=== PATIENT | female | born 1980 | race Caucasian/White ===

== ENCOUNTER 2017-02-22 17:46 | Emergency (ER) | payer OTHER ==
[2017-02-22] MEDS ORDERED: Ketorolac INJ* 60 MG/2 ML VIAL IM ONE (19:28)
--- NOTE | 2017-02-22 19:33 | UC ---
Lower Extremity/Ankle HPI - HPI Summary HPI Summary: The patient comes in today for: 1. Right ankle/foot: Onset: Yesterday. Palliative/provocative: Walking and movement makes it worse. Ice pack helped. Touching the area makes it worse. Quality: Ache, and sharp Region: Right ankle/foot Severity: 7/10 at rest. Time: Constant. Associated symptoms: Event: denied by patient. Previous evaluation: NOne Previous treatment: 800 mg at 8:30 AM. * - History of Current Complaint Chief Complaint: UCLowerExtremity Stated Complaint: RIGHT ANKLE INJURY Time Seen by Provider: 02/22/17 19:25 Hx Obtained From: Patient, Family/Janitorial Services Supervisor Hx Last Menstrual Period: 02/17/17 - Allergies/Home Medications Allergies/Adverse Reactions: Allergies Allergy/AdvReac Type Severity Reaction Status Date / Time No Known Allergies Allergy Verified 02/22/17 18:32 PMH/Surg Hx/FS Hx/Imm Hx Previously Healthy: No - Diverticulosis - Surgical History Surgical History: Yes Surgery Procedure, Year, and Place: BILATERL TOTAL HIP. RIGHT 2014, LEFT JUL 07. ESURE PROCEDURE - Family History Known Family History: Positive: Diabetes Negative: Hypertension - Social History Occupation: Employed Full-time, Student Lives: With Family Alcohol Use: 10 Years Ago Substance Use Type: None Smoking Status (MU): Former Smoker Type: Cigarettes Amount Used/How Often: <1/2 PPD Length of Time of Smoking/Using Tobacco: 10 Years When Did the Patient Quit Smoking/Using Tobacco: 07/09/14 - Immunization History Most Recent Influenza Vaccination: Not the season Review of Systems Constitutional: Negative Skin: Rash - At foot. Eyes: Negative ENT: Negative Respiratory: Negative Cardiovascular: Negative Gastrointestinal: Negative Genitourinary: Negative Motor: Negative Musculoskeletal: Arthralgia All Other Systems Reviewed And Are Negative: Yes Physical Exam Triage Information Reviewed: Yes Appearance: Well-Appearing, No Pain Distress - While sitting. She favors the right foot/ankle when walking., Well-Nourished Vital Signs: Initial Vital Signs Temp 97.6 F 02/22/17 18:33 Pulse 70 02/22/17 18:33 Resp 20 02/22/17 18:33 BP 110/57 02/22/17 18:33 Pulse Ox 100 02/22/17 18:33 Vital Signs Reviewed: Yes Eyes: Positive: Conjunctiva Clear. Negative: Discharge ENT: Negative: Pharyngeal erythema, Nasal congestion, TM bulging, TM dull, TM red, Tonsillar swelling, Tonsillar exudate Dental: Negative: Gross Decay/Caries @, Dental Fracture @ Neck: Positive: Supple, Nontender, No Lymphadenopathy. Negative: Nuchal Rigidity Respiratory: Positive: Chest non-tender, Lungs clear, No respiratory distress, No accessory muscle use. Negative: Crackles, Wheezing Cardiovascular Exam: Normal Cardiovascular: Positive: RRR, No Murmur Abdominal Exam: Normal Abdomen Description: Positive: Nontender, No Organomegaly, Soft. Negative: Distended, Guarding Musculoskeletal: Positive: Strength Intact, ROM Intact, Edema @ - There is non- pitting edema around the right ankle., Other: - Right ankle: There is ecchymosis superior to the ankle and lateral malleolus swelling. There is scattered ecchymosis behind the right ankle also. Mcgowan test was normal and there was no divot of the Achilles tendon on the right. Neurological: Positive: Alert, Muscle Tone Normal Psychological: Positive: Age Appropriate Behavior, Consolable Skin: Positive: rashes - Ecchymotic rash around the right ankle along with swelling. Diagnostics - Radiology No standard instances Xray Interpretation: No Acute Changes Radiology Interpretation Completed By: Radiologist - IMPRESSION: Soft tissue swelling most prominent over the lateral malleolus without additional abnormality. Lower Extremity Course/Dx - Course Course Of Treatment: Patient and male subsurface augmentee operator were told of the negative x-ray reading. She was told that since there was no event/injury, she may have had a spontaneous rupture of a blood vessel in her ankle area. For this, I recommended that she use an CHERYL wrap, and follow the RICE program. She thought crutches would be helpful, so these would be ordered. Getting an MRI was mentioned as a way of getting a better idea of what was going on in the soft tissues. - Differential Dx/Diagnosis Differential Diagnosis/HQI/PQRI: Cellulitis, Gout, Sprain Provider Diagnoses: Edema around the right ankle--spontaineous rupture of vein. Discharge - Discharge Plan Condition: Stable Disposition: HOME Patient Education Materials: Hematoma (ED) Referrals: Malia Avendaño MD [Primary Care Provider] - 3 Days (Please see your primary care provider in the next several days to see how well you are doing. If you get worse, please be seen sooner in the ER.)
[2017-02-22 20:32] VITALS: BP 103/62
--- NOTE | 2017-02-22 20:32 | RAD ---
Indication: Lateral RIGHT ankle pain and soft tissue swelling. Unknown injury. Comparison: No relevant prior exams available on the [facility] PACS for comparison. Technique: AP, mortise, and lateral views RIGHT ankle. Report: Soft tissue swelling about the visualized lower leg and ankle most prominent over the lateral malleolus. Negative for fracture, osteochondral lesion, or articular malalignment. Os trigonum accessory ossicle noted. No significant arthropathic change evident. No compelling suggestion of talocrural joint effusion. IMPRESSION: Soft tissue swelling most prominent over the lateral malleolus without additional abnormality.
== END 2017-02-22 21:14 | disposition home or self-care (01) ==
LOC: UCCORT 17:46
DX: R60.9 Edema, unspecified (principal)
CPT/HCPCS: 96372; 99213; G0463; J1885

== ENCOUNTER 2018-04-15 14:50 | Emergency (ER) | payer OTHER ==
[2018-04-15 15:06] VITALS: BP 109/72
--- NOTE | 2018-04-15 15:36 | UC ---
Abdominal Pain Female HPI - HPI Summary HPI Summary: Patient c/o chills, nausea and LLQ pain for the past week, which worsened today with lack of apetite and radiation of the pain to left flank. Last BM was 2 days ago, denies melena, blood, mucus. She is passing flatus. She has history of diverticulitis in the past. Denies PMH or current medications. Last PO intake was at 8am. Denies any dysuria or urinary frequency - History of Current Complaint Chief Complaint: UCAbdominalPain Stated Complaint: LEFT FLANK PAIN Time Seen by Provider: 04/15/18 15:03 Hx Obtained From: Patient Hx Last Menstrual Period: 03/29/18 ?: No Onset/Duration: Gradual Onset, Lasting Days Timing: Constant Severity Initially: Moderate Severity Currently: Severe Pain Intensity: 10 Location: Discrete At: LLQ Radiates to: Flank Character: Aching, Sharp Aggravating Factor(s): Nothing Alleviating Factor(s): Nothing Associated Signs and Symptoms: Positive: Negative - Risk Factors Ectopic Risk Factor: Maternal Age ^ 30 Ovarian Torsion Risk Factor: Negative Allergies/Adverse Reactions: Allergies Allergy/AdvReac Type Severity Reaction Status Date / Time No Known Allergies Allergy Verified 04/15/18 15:07 PMH/Surg Hx/FS Hx/Imm Hx Previously Healthy: Yes - Surgical History Surgical History: Yes Surgery Procedure, Year, and Place: 2 total hip replacments. esure - Family History Known Family History: Positive: Diabetes Negative: Hypertension - Social History Alcohol Use: Occasionally Substance Use Type: None Smoking Status (MU): Light Every Day Tobacco Smoker Type: Cigarettes Amount Used/How Often: <1/2 PPD Length of Time of Smoking/Using Tobacco: 10 Years When Did the Patient Quit Smoking/Using Tobacco: 07/09/14 - Immunization History Most Recent Influenza Vaccination: Not the season Review of Systems Constitutional: Negative, Chills Skin: Negative Eyes: Negative ENT: Negative Respiratory: Negative Cardiovascular: Negative Gastrointestinal: Abdominal Pain, Nausea Neurovascular: Negative Musculoskeletal: Negative Neurological: Negative All Other Systems Reviewed And Are Negative: Yes Physical Exam Triage Information Reviewed: Yes Appearance: Pain Distress, Obese Vital Signs: Initial Vital Signs Temp 99.1 F 04/15/18 15:03 Pulse 91 04/15/18 15:03 Resp 16 04/15/18 15:03 BP 109/72 04/15/18 15:03 Pulse Ox 100 04/15/18 15:03 Vital Signs Reviewed: Yes Eyes: Positive: Conjunctiva Clear ENT: Positive: Hearing grossly normal, Pharynx normal Neck: Positive: Supple, Nontender, No Lymphadenopathy Respiratory: Positive: Chest non-tender, Lungs clear, Normal breath sounds, No respiratory distress Cardiovascular: Positive: RRR, No Murmur, Pulses Normal, Brisk Capillary Refill Abdomen Description: Positive: No Organomegaly, Other: - tender on LLQ. Musculoskeletal: Positive: Strength Intact, ROM Intact, No Edema Abd Pain Female Course/Dx - Course Course Of Treatment: LLQ pain with radiation to back, instructed to go to [place] ER for further evaluation and r/o diverticulitis - Differential Dx/Diagnosis Provider Diagnoses: Acute abdominal pain Discharge - Sign-Out/Discharge Documenting (check all that apply): Patient Departure All imaging exams completed and their final reports reviewed: No Studies - Discharge Plan Condition: Guarded Disposition: HOME Patient Education Materials: Acute Abdominal Pain (ED) Referrals: Malia Avendaño MD [Primary Care Provider] - Additional Instructions: Please go to [place] ER for further evaluation for your abdominal pain. - Billing Disposition and Condition Condition: GUARDED Disposition: Home
== END 2018-04-15 15:35 | disposition home or self-care (01) ==
LOC: UCCORT 14:50
DX: R10.32 Left lower quadrant pain (principal); Z87.891 Personal history of nicotine dependence
CPT/HCPCS: 99212; G0463

== ENCOUNTER 2018-09-20 08:52 | Emergency (ER) | payer BC, OTHER ==
[2018-09-20 09:03] VITALS: BP 124/61
--- NOTE | 2018-09-20 09:55 | UC ---
Ear Complaint HPI - HPI Summary HPI Summary: 38-year-old female comes in with chief complaint of left ear pain. She has been having left ear pain on and off for several weeks. This last one week it' s been constant. In the last 24 hours the pains got worse and she also has rhinorrhea. No fevers no trauma. Is not a swimmer. No drainage. She does have a mild sore throat. No pain with chewing no dental pain. - History of Current Complaint Chief Complaint: UCEar Stated Complaint: LT EAR PAIN Time Seen by Provider: 09/20/18 09:48 Hx Last Menstrual Period: 09/20/18 Pain Intensity: 9 - Allergies/Home Medications Allergies/Adverse Reactions: Allergies Allergy/AdvReac Type Severity Reaction Status Date / Time No Known Allergies Allergy Verified 09/20/18 09:01 PMH/Surg Hx/FS Hx/Imm Hx Previously Healthy: Yes - Surgical History Surgical History: Yes Surgery Procedure, Year, and Place: 2 total hip replacments. esure - Family History Known Family History: Positive: Diabetes Negative: Hypertension - Social History Alcohol Use: Rare Substance Use Type: None Smoking Status (MU): Former Smoker Type: Cigarettes Amount Used/How Often: <1/2 PPD Length of Time of Smoking/Using Tobacco: 10 Years When Did the Patient Quit Smoking/Using Tobacco: 07/09/14 - Immunization History Most Recent Influenza Vaccination: Not the season Review of Systems All Other Systems Reviewed And Are Negative: Yes Constitutional: Positive: Negative Skin: Positive: Negative Eyes: Positive: Negative ENT: Positive: Sore Throat, Ear Ache, Nasal Discharge, Sinus Congestion Respiratory: Positive: Negative Cardiovascular: Positive: Negative Gastrointestinal: Positive: Negative Motor: Positive: Negative Neurovascular: Positive: Negative Musculoskeletal: Positive: Negative Neurological: Positive: Negative Psychological: Positive: Negative Is Patient Immunocompromised?: No Physical Exam Triage Information Reviewed: Yes Appearance: Well-Appearing, No Pain Distress, Well-Nourished Vital Signs: Initial Vital Signs Temp 98.3 F 09/20/18 09:00 Pulse 69 09/20/18 09:00 Resp 18 09/20/18 09:00 BP 124/61 09/20/18 09:00 Pulse Ox 97 09/20/18 09:00 Vital Signs Reviewed: Yes Eye Exam: Normal Eyes: Positive: Conjunctiva Clear ENT: Positive: Pharyngeal erythema, Nasal congestion, Nasal drainage, TM bulging - LEFT, TM dull - LEFT Neck exam: Normal Neck: Positive: Supple Respiratory: Positive: Lungs clear, Normal breath sounds, No respiratory distress Cardiovascular: Positive: RRR Musculoskeletal Exam: Normal Musculoskeletal: Positive: Strength Intact, ROM Intact Neurological Exam: Normal Neurological: Positive: Alert, Muscle Tone Normal Psychological Exam: Normal Psychological: Positive: Age Appropriate Behavior Skin Exam: Normal Ear Complaint Course/Dx - Differential Dx/Diagnosis Provider Diagnosis: Left serous otitis media Discharge - Sign-Out/Discharge Documenting (check all that apply): Patient Departure All imaging exams completed and their final reports reviewed: No Studies - Discharge Plan Condition: Stable Disposition: HOME Prescriptions: Amoxicillin/Clavulanate TAB* [Augmentin TAB 875*] 875 mg PO BID #20 tab Patient Education Materials: Serous Otitis Media (ED) Referrals: Carey Shukla [Primary Care Provider] - Additional Instructions: FOLLOW UP WITH YOUR DOCTOR IF NOT COMPLETELY IMPROVED. GET RECHECKED FOR ANY WORSENING OF YOUR CONDITION OR QUESTIONS OR CONCERNS. - Billing Disposition and Condition Condition: STABLE Disposition: Home
== END 2018-09-20 09:59 | disposition home or self-care (01) ==
LOC: UCCORT 08:52
DX: H65.92 Unspecified nonsuppurative otitis media, left ear (principal); J34.89 Other specified disorders of nose and nasal sinuses; J02.9 Acute pharyngitis, unspecified; R09.81 Nasal congestion; Z96.643 Presence of artificial hip joint, bilateral; Z87.891 Personal history of nicotine dependence
CPT/HCPCS: 99212; G0463

== ENCOUNTER 2019-03-01 12:52 | Emergency (ER) | payer BC ==
--- NOTE | 2019-03-01 13:26 | UC ---
Complaint Female HPI - HPI Summary HPI Summary: 38 y/o female presents to the urgent care c/o having a UTI for the past 4 days. Pt reports suprapubic pressure, urinary frequency, and "irritation" after urination.. Symptoms improved with increased hydration and cranberry juice. Symptoms have since returned and has urinary urgency now. "A little bit" lower back pain since last night. Last UTI was 11 years ago. No concern for STD; monogamous for 18 years. Denies fever/chills, N/V/D, abdominal pain, gross hematuria, or abnormal vaginal discharge/itching/odor/pain. LMP:02/18/2019 w/ regular menstrual cycles - History Of Current Complaint Stated Complaint: URINARY COMPLAINT Time Seen by Provider: 03/01/19 13:25 Hx Obtained From: Patient Hx Last Menstrual Period: 02/18/2019 ?: No Onset/Duration: Gradual Onset, Lasting Days - 4 days, Still Present Timing: Lasting Days - 4 days Severity Currently: Mild Pain Intensity: 4 Pain Scale Used: 0-10 Numeric Character: Burning Aggravating Factor(s): Urination Associated Signs And Symptoms: Positive: Back Pain - mild lower back pain. Negative: Fever, Vaginal Discharge, Genital Swelling, Genital Blisters - Risk Factors Ectopic Risk Factor: Negative Ovarian Torsion Risk Factor: Negative - Allergies/Home Medications Allergies/Adverse Reactions: Allergies Allergy/AdvReac Type Severity Reaction Status Date / Time No Known Allergies Allergy Verified 03/01/19 13:31 PMH/Surg Hx/FS Hx/Imm Hx Previously Healthy: Yes - Pt denies PMHX - Surgical History Surgical History: Yes Surgery Procedure, Year, and Place: 2 total hip replacments. esure - Family History Known Family History: Positive: Diabetes Negative: Hypertension - Social History Occupation: Employed Full-time Lives: With Family Alcohol Use: Rare Substance Use Type: None Smoking Status (MU): Former Smoker Type: Cigarettes Amount Used/How Often: <1/2 PPD Length of Time of Smoking/Using Tobacco: 10 Years When Did the Patient Quit Smoking/Using Tobacco: 07/09/14 - Immunization History Most Recent Influenza Vaccination: Not the 2013/2014 season Review of Systems All Other Systems Reviewed And Are Negative: Yes Constitutional: Positive: Negative Skin: Positive: Negative Eyes: Positive: Negative ENT: Positive: Negative Respiratory: Positive: Negative Cardiovascular: Positive: Negative Gastrointestinal: Positive: Negative Genitourinary: Positive: Dysuria, Frequency, Urgency, Other - pelvic pressure and mild lower back pain Motor: Positive: Negative Neurovascular: Positive: Negative Musculoskeletal: Positive: Negative Neurological: Positive: Negative Psychological: Positive: Negative Is Patient Immunocompromised?: No Physical Exam - Summary Physical Exam Summary: VITAL SIGNS: Reviewed. GENERAL: Patient is a well developed and nourished obese female who is sitting comfortable in the examining table. Patient is not in any acute respiratory distress. HEAD AND FACE: No signs of trauma. No ecchymosis, hematomas or skull depressions. No sinus tenderness. EYES: PERRLA, EOMI x 2, No injected conjunctiva, clear watery eyes, no nystagmus. No photophobia. EARS: Hearing grossly intact. Ear canals and tympanic membranes are within normal limits. MOUTH: pharynx with no erythema, no exudates,no palatal petechiae. no B/L tonsillar enlargement Uvula in midline. NECK: Supple, trachea is midline, no lymphadenopathy, no JVD, no carotid bruit, no c-spine tenderness, neck with full ROM. CHEST: Symmetric, no tenderness at palpation LUNGS: Clear to auscultation bilaterally. No wheezing or crackles. CVS: Regular rate and rhythm, S1 and S2 present, no murmurs or gallops appreciated. ABDOMEN: Soft, non-tender. No signs of distention. No rebound no guarding, and no masses palpated. Bowel sounds are normal. BACK:no scoliosis or lesions, non tender to palpation, No B/L CVA tenderness EXTREMITIES: FROM in all major joints, no edema, no cyanosis or clubbing. NEURO: Alert and oriented x 3. No acute neurological deficits. Speech is normal and follows commands. SKIN: Dry and warm Triage Information Reviewed: Yes Complaint Female Dx - Course Course Of Treatment: 38 y/o female presents to the urgent care c/o having a UTI for the past 4 days. Pt reports suprapubic pressure, urinary frequency, and "irritation" after urination.. Symptoms improved with increased hydration and cranberry juice. Symptoms have since returned and has urinary urgency now. "A little bit" lower back pain since last night. Last UTI was 11 years ago. No concern for STD; monogamous for 18 years. Denies fever/chills, N/V/D, abdominal pain, gross hematuria, or abnormal vaginal discharge/itching/odor/pain. LMP:02/18/2019 w/ regular menstrual cycles. Hx obtained. PE:WNL. UA and test ordered. UA results: Blood trace+, Leukoesterase 2+. test: negative. Pt Rx keflex PO PO x 7 days. Pyridium 100mg PO TID x 2 days. Advised to increase fluid intake. Urine sent for culture if any abnormality Pt will be notified for further treatment. Pt advised If symptoms do not improve to return to the urgent care or f/u with PCP. Pt understood and agreed. Left the clinic ambulating. - Differential Dx/Diagnosis Differential Diagnosis/HQI/PQRI: Cervicitis, Renal Colic, Sexually Transmitted Disease, Ureteral Stone, Urinary Tract Infection Provider Diagnosis: UTI (urinary tract infection) Discharge - Sign-Out/Discharge Documenting (check all that apply): Patient Departure - D/C home All imaging exams completed and their final reports reviewed: No Studies - Discharge Plan Condition: Stable Disposition: HOME Prescriptions: Cephalexin CAP* [Keflex CAP*] 500 mg PO BID #14 cap Phenazopyridine TAB* [Pyridium 100 mg TAB*] 100 mg PO TID #6 tab Patient Education Materials: Urinary Tract Infection in Women (ED) Referrals: Carey Shukla [Primary Care Provider] - 3 Days Additional Instructions: 1- Please take Keflex PO x 7 days. Pyridium 100 mg PO TID x 2 days to alleviate urinary symptoms. Increase increase fluid intake. drink cranberry juice. 2-Urine sent for culture if any abnormality, you will be notified for further treatment. 3-If symptoms do not improve please return to the urgent care or f/u with your PCP in 3 days for further management. - Billing Disposition and Condition Condition: STABLE Disposition: Home - Attestation Statements Provider Attestation: Per institutional requirements, I have reviewed the chart, however, I was not consulted specifically or made aware of this patient by the midlevel provider. I did not personally evaluate, interact with , or disposition this patient.
[2019-03-01 13:37] VITALS: BP 107/72
== END 2019-03-01 14:03 | disposition home or self-care (01) ==
LOC: UCCORT 12:52
DX: N39.0 Urinary tract infection, site not specified (principal); B96.20 Unspecified Escherichia coli [E. coli] as the cause of diseases classified elsewhere; Z87.891 Personal history of nicotine dependence
CPT/HCPCS: 81003; 84702; 87077; 87086; 87186; 99212; G0463

== ENCOUNTER 2019-11-16 10:15 | Emergency (ER) | payer BC ==
--- NOTE | 2019-11-16 10:54 | UC ---
Respiratory Complaint HPI - HPI Summary HPI Summary: 39 yo with 3 day history of malaise, with progressive dry cough and shortness of breath. 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 Past hx of bronchitis for which she has used antibiotic and albuterol with relief. Has been awakening with shortness of breath. Former smoker, stopped several years ago. - History of Current Complaint Chief Complaint: UCGeneralIllness Stated Complaint: COUGH, CHEST CONGESTION Hx Obtained From: Patient Hx Last Menstrual Period: 11/14/19 Onset/Duration: Gradual Onset Timing: Constant Severity Initially: Moderate Severity Currently: Moderate Pain Intensity: 4 Character: Cough: Nonproductive Aggravating Factors: Exertion, Recumbent Position Associated Signs And Symptoms: Positive: Dyspnea, Nasal Congestion. Negative: Fever, Wheezing, URI - Risk Factors Pulmonary Embolism Risk Factors: Negative Cardiac Risk Factors: Negative Pseudomonas Risk Factors: Negative Tuberculosis Risk Factors: Negative - Allergies/Home Medications Allergies/Adverse Reactions: Allergies Allergy/AdvReac Type Severity Reaction Status Date / Time No Known Allergies Allergy Verified 11/16/19 10:47 Home Medications: Home Medications Albuterol HFA INHALER* [Ventolin HFA Inhaler*] 2 puff INH Q6H PRN #1 mdi [Rx] Azithromyxin APRIL (NF) [Z-April (Zithromax) 250 mg tabs #6] 2 tab PO .TODAY, THEN 1 DAILY #6 tab 11/16/19 [Rx] Meloxicam 7.5 mg PO DAILY 11/16/19 [History Confirmed 11/16/19] PMH/Surg Hx/FS Hx/Imm Hx Previously Healthy: Yes - morbid obesity - Surgical History Surgical History: Yes Surgery Procedure, Year, and Place: 2 total hip replacments. esure - Family History Known Family History: Positive: Diabetes Negative: Hypertension - Social History Occupation: Employed Full-time Lives: With Family Alcohol Use: Rare Substance Use Type: None Smoking Status (MU): Former Smoker Type: Cigarettes Amount Used/How Often: <1/2 PPD Length of Time of Smoking/Using Tobacco: 10 Years When Did the Patient Quit Smoking/Using Tobacco: 07/09/14 - Immunization History Most Recent Influenza Vaccination: Not the Review of Systems All Other Systems Reviewed And Are Negative: Yes Constitutional: Positive: Fatigue Skin: Positive: Negative Eyes: Positive: Negative ENT: Positive: Nasal Discharge. Negative: Sore Throat Respiratory: Positive: Shortness Of Breath, Cough Cardiovascular: Negative: Palpitations, Chest Pain Gastrointestinal: Positive: Negative Genitourinary: Positive: Negative Motor: Positive: Negative Neurovascular: Positive: Negative Musculoskeletal: Positive: Myalgia Neurological/Mental Status: Positive: Negative Psychological: Positive: Negative Is Patient Immunocompromised?: No Physical Exam - Summary Physical Exam Summary: Full PPE donned for evaluation and assessment. Triage Information Reviewed: Yes Appearance: Ill-Appearing - mildly tachypneic, but able to speak., Obese Eye Exam: Normal ENT: Positive: Pharynx normal Neck: Positive: Supple, Nontender, No Lymphadenopathy Respiratory: Positive: No respiratory distress - mildly tachypneic with O2 sat of 100%, no indrawing or sternomastoid use., Decreased breath sounds. 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 - Differential Dx/Diagnosis Differential Diagnosis/HQI/PQRI: Bronchitis, Lower Resp Infection, Other - COVID -19 Provider Diagnosis: Bronchitis Discharge ED - Sign-Out/Discharge Documenting (check all that apply): Patient Departure All imaging exams completed and their final reports reviewed: No Studies - Discharge Plan Condition: Stable Disposition: HOME Prescriptions: Albuterol HFA INHALER* [Ventolin HFA Inhaler*] 2 puff INH Q6H PRN #1 mdi PRN Reason: Wheezing Azithromyxin APRIL (NF) [Z-April (Zithromax) 250 mg tabs #6] 2 tab PO .TODAY, THEN 1 DAILY #6 tab Patient Education Materials: Acute Bronchitis (ED) Forms: COVID-19 Tested & Isolation Referrals: Noble Garzon NP [Primary Care Provider] - Additional Instructions: As reviewed, begin treatment for suspected bronchitis. Remain off work and isolated pending the result of COVID-19 testing, which could take up to 7 days. - Billing Disposition and Condition Condition: STABLE Disposition: Home
--- OUTSIDE RECORDS SUMMARY | 2019-11-16 10:54 | XMS REPORT | Continuity of Care Document ---
:1980 External Reference #:[id number] Author Name aSm Esparza M.D. Address [address] [place] [address] [address] [place] [address] Problems Description No Information Available Social History Type Date Description Comments Sex Unknown ETOH Use Occasionally consumes alcohol Tobacco Use Start: Unknown End: Patient is a former smoker Unknown Recreational Drug Use Regularly uses Marijuana Allergies, Adverse Reactions, Alerts Description No Known Drug Allergies Medications Active Medications SIG Qnty Indications Ordering Provider Date Allergy Relief 1 by mouth every 30tabs J30.9 Sam Esparza, 05/09/2019 10mg day M.D. Tablets Dispers Meloxicam take one tablet 60tabs M15.9 Sam Esparza, 05/09/2019 7.5mg Tablets by mouth twice a M.D. day-take with food History Medications Ciprofloxacin HCL 1 tab by mouth 30tabs K57.32 Sam Esparza 08/29/2019 - 500mg twice a day M. M.DYovanny 09/05/2019 Tablets Azithromycin z harjinder uad 6tabs J20.9 IsaiasSam levy 05/23/2019 - 250mg Tablets M. MYovannyDYovanny 2019 Diflucan 1 by mouth day 2tabs Sam Esparza 05/19/2019 - 150mg Tablets one Today, and Beronica Akhtar 2019 Last Day Of Abx Amoxicillin/Clavulanate 1 tab by mouth 30tabs J30.9 Sam Esparza 2018 - Potassium twice a day Hermilo AkhtarDYovanny 05/24/2019 875-125mg Tablets Immunizations CPT Code Status Date Vaccine Lot # [id number] Given 09/25/2019 [facility] [id number] Vital Signs Date Vital Result Comment 09/25/2019 4:22pm BP Systolic 118 mmHg BP Diastolic 68 mmHg Height 59.5 inches 4'11.50" Weight 241.00 lb BMI (Body Mass Index) 47.9 kg/m2 Heart Rate 89 /min Respiratory Rate 16 /min 09/08/2019 8:47am BP Systolic 125 mmHg BP Diastolic 60 mmHg Height 59.5 inches 4'11.50" Weight 241.00 lb BMI (Body Mass Index) 47.9 kg/m2 Heart Rate 70 /min Respiratory Rate 17 /min Results Test Acquired Date Facility Test Result H/L Range Note 1,25 Dihydroxy 05/23/2019 [facility] Calcitriol 19 pg/mL 18-78 1 Vitamin D Laboratory test 05/23/2019 [facility] Erythrocyte Sed 23 mm/Hr High 0 -19 finding Rate Iron 72 g/dL Normal 50-212 Lyme Screen w/ Reflex to WB Negative Negative Lipid 05/23/2019 [facility] Triglycerides 65 mg/dL 2 Cholesterol 160 mg/dL 3 HDL Cholesterol 40.7 mg/dL 4 LDL Cholesterol 106 mg/dL 5 Laboratory test 05/23/2019 [facility] Hemoglobin A1c 5.5 % Normal 4.0 -5.6 6 finding (Glyco HGB) CBC With Diff 05/23/2019 [facility] White Blood 6.4 Normal 3.5-10.8 Count 10^3/uL Red Blood Count 4.01 10^6/uL Normal 3.70-4.87 Hemoglobin 12.9 g/dL Normal 12.0-16.0 Hematocrit 37 % Normal 35-47 Mean Corpuscular Volume 92 fL Normal 80-97 Mean Corpuscular Hemoglobin 32 pg High 27-31 Mean Corpuscular HGB Conc 35 g/dL Normal 31-36 Red Cell Distribution Width 13 % Normal 10-15 Platelet Count 292 10^3/uL Normal 150-450 Mean Platelet Volume 7.0 fL Low 7.4-10.4 Abs Neutrophils 3.9 10^3/uL Normal 1.5-7.7 Abs Lymphocytes 1.7 10^3/uL Normal 1.0-4.8 Abs Monocytes 0.4 10^3/uL Normal 0-0.8 Abs Eosinophils 0.2 10^3/uL Normal 0-0.6 Abs Basophils 0.0 10^3/uL Normal 0-0.2 Abs Nucleated RBC 0.0 10^3/uL Granulocyte % 61.7 % Lymphocyte % 27.2 % Monocyte % 6.8 % Eosinophil % 3.9 % Basophil % 0.4 % Nucleated Red Blood Cells % 0.0 CMP 05/23/2019 [facility] Sodium 140 mmol/L Normal 135-145 Potassium 4.3 mmol/L Normal 3.5-5.0 Chloride 106 mmol/L Normal 101-111 Co2 Carbon Dioxide 28 mmol/L Normal 22-32 Anion Gap 6 mmol/L Normal 2-11 Glucose 79 mg/dL Normal 70-100 Blood Urea Nitrogen 14 mg/dL Normal 6-24 Creatinine 0.60 mg/dL Normal 0.51-0.95 BUN/Creatinine Ratio 23.3 High 8-20 Calcium 9.0 mg/dL Normal 8.6-10.3 Total Protein 6.1 g/dL Low 6.4-8.9 Albumin 4.1 g/dL Normal 3.2-5.2 Globulin 2.0 g/dL Normal 2-4 Albumin/Globulin Ratio 2.1 Normal 1-3 Total Bilirubin 0.60 mg/dL Normal 0.2-1.0 Alkaline Phosphatase 54 U/L Normal 34-104 Alt 16 U/L Normal 7-52 Ast 15 U/L Normal 13-39 Egfr Non- 111.3 >60 Egfr 134.7 >60 7 Laboratory test 05/23/2019 [facility] Rheumatoid Factor < 10 IU/mL Normal <15 finding Uric Acid 5.4 mg/dL Normal 2.3-6.6 CRP High Sensitivity 8.67 mg/L High <2.00 TSH (Thyroid Stim Horm) 0.70 mcIU/mL Normal 0.34-5.60 Free T4 (Free Thyroxine) 0.93 ng/dL Normal 0.61-1.12 Hepatitis 05/23/2019 [facility] Hepatitis B Nonreactive Nonreactive Profile Acute Surface Antigen Hepatitis B Core IgM Nonreactive Nonreactive Hepatitis A Ab IgM Negative Negative HCV Index 0.03 s/c Hepatitis C Antibody Negative Negative Urine Drug [place] 05/09/2019 [facility] KBD-Ooaup-1-Cooh 149.9 Abnormal 5 8, 9 Positive I <SEE NOTE> ng/mL Antidepressants 05/09/2019 [facility] Amitriptyline Negative Normal 20 Panel By LC/MS/MS ng/mL Clomipramine Negative ng/mL Normal 20 Desipramine Negative ng/mL Normal 20 Doxepin Negative ng/mL Normal 20 Fluoxetine Negative ng/mL Normal 20 Imipramine Negative ng/mL Normal 20 Norclomipramine Negative ng/mL Normal 20 Nordoxepin Negative ng/mL Normal 20 Nortriptyline Negative ng/mL Normal 20 Sertraline Negative ng/mL Normal 20 Trimipramine Negative ng/mL Normal 20 10 Barbiturates Panel 05/09/2019 [facility] Butalbital Negative ng/ mL Normal 100 By LC/MS/MS Pentobarbital Negative ng/mL Normal 100 Phenobarbital Negative ng/mL Normal 100 Secobarbital Negative ng/mL Normal 100 11 Benzodiazepines 05/09/2019 [facility] 2-Hydroxyethylflurazepam Negative Normal 10 Panel By LC/MS/MS ng/mL 7-Aminoclonazepam Negative ng/mL Normal 10 Alprazolam Negative ng/mL Normal 10 Chlordiazepoxide Negative ng/mL Normal 10 Clonazepam Negative ng/mL Normal 10 Desalkylflurazepam Negative ng/mL Normal 10 Diazepam Negative ng/mL Normal 10 Lorazepam Negative ng/mL Normal 10 Midazolam Negative ng/ml Normal 10 Nordiazepam Negative ng/mL Normal 10 Alpha-hydroxyalprazolam Negative ng/mL Normal 10 Alpha-Hydroxymidazolam Negative ng/mL Normal 10 Alpha-Hydroxytriazolam Negative ng/mL Normal 10 Oxazepam Negative ng/mL Normal 10 Prazepam Negative ng/mL Normal 10 Temazepam Negative ng/mL Normal 10 12 Buprenorphine Panel 05/09/2019 [facility] Buprenorphine Negative ng/mL Normal 5 By LC/MS/MS Naloxone Negative ng/mL Normal 10 Norbuprenorphine Negative ng/mL Normal 5 13 Methadone Panel By 05/09/2019 [facility] Eddp Negative ng/mL Normal 10 LC/MS/MS Methadone Negative ng/mL Normal 10 14 Opiates Panel 05/09/2019 [facility] 6-Osbaldo (Heroin Negative ng/mL Normal 5 By LC/MS/MS Metabolite) Codeine Negative ng/mL Normal 50 Hydrocodone Negative ng/mL Normal 50 Hydromorphone Negative ng/mL Normal 50 Morphine Negative ng/mL Normal 50 Norhydrocodone Negative ng/mL Normal 50 Noroxycodone Negative ng/mL Normal 50 Noroxymorphone Negative ng/mL Normal 50 Oxycodone Negative ng/mL Normal 50 Oxymorphone Negative ng/mL Normal 50 15 Specimen Validity 05/09/2019 [facility] Creatinine, Urine 25 mg/ dL Normal >20 Panel Color YELLOW Normal Yellow pH 8.8 Abnormal 5.0-8.0 Specific [place] 1.009 Normal 1.001-1.035 16 Amphetamine Panel 05/09/2019 [facility] Amphetamine Negative ng/ mL Normal 50 By LC/MS/MS Methamphetamine Negative ng/mL Normal 50 Mdma (Ecstasy) Negative ng/mL Normal 50 Mda Negative ng/ml Normal 50 Mdea Negative ng/mL Normal 50 17 Cocaine Panel 05/09/2019 [facility] Benzoylecgonine Negative Normal 50 18 By LC/MS/MS (Cocaine) ng/mL Urine DRG SCR 05/09/2019 [facility] Amphetamine NEGATIVE Normal 1000 (12PNL-PM) Barbiturate NEGATIVE Normal 200 Benzodiazepine NEGATIVE Normal 200 Buprenorphine NEGATIVE Normal 15 Cannabinoid POSITIVE Abnormal 50 Cocaine NEGATIVE Normal 300 Methadone NEGATIVE Normal 300 Opiate NEGATIVE Normal 300 Oxycodone NEGATIVE Normal 300 Phencyclidine NEGATIVE Normal 25 19 Laboratory test 05/09/2019 [facility] Tramadol Negative ng/mL Normal 5 20 finding Gabapentin Negative ng/mL Normal 100 21 Phentermine Negative ng/mL Normal 50 22 Ethyl Glucuronide 05/09/2019 [facility] Ethyl Glucuronide Negative Normal 500 ng/mL PDF SEE IMAGE 1 ADDITIONAL INFORMATION This test was developed and its performance characteristics determined by [facility] in a manner consistent with CLIA requirements. This test has not been cleared or approved by the U.S. Food and Drug Administration. Test Performed by: [facility] [address] [place] [address] Mutuel Cashier: Noble Elizabeth M.D. Ph.D.; CLIA# [id number] 2 Desirable: <150 Borderline High: 150-199 High: 200-499 Very High: >500 3 Desirable: <200 Borderline High: 200-239 High: >239 4 Low: <40 Desirable: 40-60 High: >60 5 Desirable: <100 Near Optimal: 100-129 Borderline High: 130-159 High: 160-189 Very High: >189 6 Therapeutic target for the treatment of diabetes mellitus patients is <7% HBA1C, and in selective patients <6.0%. Please refer to [place] [employer] diabetic care guidelines for further information. 7 Because ethnic data is not always readily available, this report includes an eGFR for both -Americans and non- Americans. The National Kidney Disease Education Program (NKDEP) does not endorse the use of the MDRD equation for patients that are not between the ages of 18 and 70, are , have extremes of body size, muscle mass, or nutritional status, or are non- or non-. According to the National Kidney Foundation, irrespective of diagnosis, the stage of the disease is based on the level of kidney function: Stage Description GFR(mL/min/1.73 m(2)) 1 Kidney damage with normal or decreased GFR 90 2 Kidney damage with mild decrease in GFR 60-89 3 Moderate decrease in GFR 30-59 4 Severe decrease in GFR 15-29 5 Kidney failure <15 (or dialysis) 8 Prescribed Medications: No prescribed medications were listed on the requisition form. 9 149.9 Positive Inconsistent EQA-Cswph-9-COOH is a metabolite of THC(Marijuana) Prescribed Medications: No prescribed medications were listed on the requisition form. 10 Prescribed Medications: No prescribed medications were listed on the requisition form. 11 Prescribed Medications: No prescribed medications were listed on the requisition form. 12 Prescribed Medications: No prescribed medications were listed on the requisition form. 13 Prescribed Medications: No prescribed medications were listed on the requisition form. 14 Prescribed Medications: No prescribed medications were listed on the requisition form. 15 Prescribed Medications: No prescribed medications were listed on the requisition form. 16 Prescribed Medications: No prescribed medications were listed on the requisition form. 17 Prescribed Medications: No prescribed medications were listed on the requisition form. 18 Prescribed Medications: No prescribed medications were listed on the requisition form. 19 Prescribed Medications: No prescribed medications were listed on the requisition form. 20 Prescribed Medications: No prescribed medications were listed on the requisition form. 21 Prescribed Medications: No prescribed medications were listed on the requisition form. 22 Prescribed Medications: No prescribed medications were listed on the requisition form. Procedures Date Code Description Status 05/23/2019 69072 Tympanometry Completed 05/09/2019 76615 Visual Screening Test Completed 05/09/2019 41911 Audiometry, Bekesy, Screening Completed Medical Devices Description No Information Available Encounters Type Date Location Provider Dx Diagnosis Office Visit 09/25/2019 [facility] Isaias Dimitrisbertha Akhtar, L20.9 Atopic dermatitis, 4:30p M.D. unspecified J30.9 Allergic rhinitis, unspecified M15.9 Polyosteoarthritis, unspecified K57.32 Dvtrcli of lg int w/o perforation or abscess w/o bleeding Z23 Encounter for immunization H66.93 Otitis media, unspecified, bilateral H92.03 Otalgia, bilateral J20.9 Acute bronchitis, unspecified M25.571 Pain in right ankle and joints of right foot Office Visit 09/08/2019 8:45a [facility] Yamile Padilla0.9 Atopic dermatitis, N.P. unspecified J30.9 Allergic rhinitis, unspecified M15.9 Polyosteoarthritis, unspecified M25.571 Pain in right ankle and joints of right foot Z13.29 Encounter for screening for oth suspected endocrine disorder H66.93 Otitis media, unspecified, bilateral H92.03 Otalgia, bilateral J20.9 Acute bronchitis, unspecified K57.32 Dvtrcli of lg int w/o perforation or abscess w/o bleeding Z23 Encounter for immunization Z68.42 Body mass index (BMI) 45.0-49.9, adult Office Visit 08/29/2019 1:00p [facility] Yamile Padilla0.9 Atopic dermatitis, N.P. unspecified J30.9 Allergic rhinitis, unspecified M15.9 Polyosteoarthritis, unspecified M25.571 Pain in right ankle and joints of right foot Z13.29 Encounter for screening for oth suspected endocrine disorder H66.93 Otitis media, unspecified, bilateral H92.03 Otalgia, bilateral J20.9 Acute bronchitis, unspecified K57.32 Dvtrcli of lg int w/o perforation or abscess w/o bleeding Z68.42 Body mass index (BMI) 45.0-49.9, adult Office Visit 05/23/2019 8:45a [facility] Yamile Padilla0.9 Atopic dermatitis, N.P. unspecified J30.9 Allergic rhinitis, unspecified M15.9 Polyosteoarthritis, unspecified M25.571 Pain in right ankle and joints of right foot Z13.29 Encounter for screening for oth suspected endocrine disorder H66.93 Otitis media, unspecified, bilateral H92.03 Otalgia, bilateral J20.9 Acute bronchitis, unspecified Z68.42 Body mass index (BMI) 45.0-49.9, adult Office Visit 05/09/2019 2:30p [facility] Noble Garzon L20.9 Atopic dermatitis, N.P. unspecified J30.9 Allergic rhinitis, unspecified Z00.01 Encounter for general adult medical exam w abnormal findings M15.9 Polyosteoarthritis, unspecified M25.571 Pain in right ankle and joints of right foot H92.01 Otalgia, right ear Z68.42 Body mass index (BMI) 45.0-49.9, adult Assessments Date Code Description Provider 09/25/2019 L20.9 Atopic dermatitis, unspecified Sam Esparza M.D. 09/25/2019 J30.9 Allergic rhinitis, unspecified Sam Esparza M.D. 09/25/2019 M15.9 Polyosteoarthritis, unspecified Sam Esparza M.D. 09/25/2019 K57.32 Diverticulitis of large intestine without Sam Esparza M.D. perforation or abscess without bleeding 09/25/2019 Z23 Encounter for immunization Sam Esparza M.D. 09/25/2019 H66.93 Otitis media, unspecified, bilateral Sam Esparza M.D. 09/25/2019 H92.03 Otalgia, bilateral Sam Esparza M.D. 09/25/2019 J20.9 Acute bronchitis, unspecified Sam Esparza M.D. 09/25/2019 M25.571 Pain in right ankle and joints of right foot Sam Esparza M.D. 09/08/2019 L20.9 Atopic dermatitis, unspecified Noble Garzon N.P. 09/08/2019 J30.9 Allergic rhinitis, unspecified Noble Garzon N.P. 09/08/2019 M15.9 Polyosteoarthritis, unspecified Noble Garzon N.P. 09/08/2019 M25.571 Pain in right ankle and joints of right foot Noble Garzon, N.P. 09/08/2019 Z13.29 Encounter for screening for other suspected Noble Garzon , N.P. endocrine disorder 09/08/2019 H66.93 Otitis media, unspecified, bilateral Noble Garzon, N.P. 09/08/2019 H92.03 Otalgia, bilateral Noble Garzon, N.P. 09/08/2019 J20.9 Acute bronchitis, unspecified Noble Garzon, N.P. 09/08/2019 K57.32 Diverticulitis of large intestine without Noble Garzon, N.P. perforation or abscess without bleeding 09/08/2019 Z23 Encounter for immunization Noble Garzon, N.P. 09/08/2019 Z68.42 Body mass index (BMI) 45.0-49.9, adult Noble Garzon, N.P. 09/05/2019 L20.9 Atopic dermatitis, unspecified Noble Garzon, N.P. 09/05/2019 J30.9 Allergic rhinitis, unspecified Noble Garzon, N.P. 09/05/2019 M15.9 Polyosteoarthritis, unspecified Noble Garzon, N.P. 09/05/2019 M25.571 Pain in right ankle and joints of right foot Noble Garzon, N.P. 09/05/2019 Z13.29 Encounter for screening for other suspected Noble Garzon , N.P. endocrine disorder 09/05/2019 H66.93 Otitis media, unspecified, bilateral Noble Garzon, N.P. 09/05/2019 H92.03 Otalgia, bilateral Noble Garzon, N.P. 09/05/2019 J20.9 Acute bronchitis, unspecified Noble Garzon, N.P. 09/05/2019 K57.32 Diverticulitis of large intestine without Noble Garzon, N.P. perforation or abscess without bleeding 09/05/2019 Z68.42 Body mass index (BMI) 45.0-49.9, adult Noble Garzon, N.P. 08/29/2019 L20.9 Atopic dermatitis, unspecified Noble Garzon, N.P. 08/29/2019 J30.9 Allergic rhinitis, unspecified Noble Garzon, N.P. 08/29/2019 M15.9 Polyosteoarthritis, unspecified Noble Garzon, N.P. 08/29/2019 M25.571 Pain in right ankle and joints of right foot Noble Garzon, N.P. 08/29/2019 Z13.29 Encounter for screening for other suspected Noble Garzon , N.P. endocrine disorder 08/29/2019 H66.93 Otitis media, unspecified, bilateral Noble Garzon, N.P. 08/29/2019 H92.03 Otalgia, bilateral Noble Garzon, N.P. 08/29/2019 J20.9 Acute bronchitis, unspecified Noble Garzon, N.P. 08/29/2019 K57.32 Diverticulitis of large intestine without Noble Garzon, N.P. perforation or abscess without bleeding 08/29/2019 Z68.42 Body mass index (BMI) 45.0-49.9, adult Noble Garzon, N.P. 05/23/2019 L20.9 Atopic dermatitis, unspecified Noble Garzon, N.P. 05/23/2019 J30.9 Allergic rhinitis, unspecified Noble Garzon, N.P. 05/23/2019 M15.9 Polyosteoarthritis, unspecified Noble Garzon, N.P. 05/23/2019 M25.571 Pain in right ankle and joints of right foot Noble Garzon, N.P. 05/23/2019 Z13.29 Encounter for screening for other suspected Noble Garzon , N.PYovanny endocrine disorder 05/23/2019 H66.93 Otitis media, unspecified, bilateral Noble Garzon, N.P. 05/23/2019 H92.03 Otalgia, bilateral Noble Garzon, N.P. 05/23/2019 J20.9 Acute bronchitis, unspecified Noble Garzon, N.P. 05/23/2019 Z68.42 Body mass index (BMI) 45.0-49.9, adult Noble Garzon, N.P. 05/09/2019 L20.9 Atopic dermatitis, unspecified Noble Garzon, N.P. 05/09/2019 J30.9 Allergic rhinitis, unspecified Noble Garzon, N.P. 05/09/2019 Z00.01 Encounter for general adult medical Noble Garzon N.Maulik examination with abnormal findings 05/09/2019 M15.9 Polyosteoarthritis, unspecified Noble Garzon, N.P. 05/09/2019 M25.571 Pain in right ankle and joints of right foot Noble Garzon, N.P. 05/09/2019 H92.01 Otalgia, right ear Noble Garzon N.P. 05/09/2019 Z68.42 Body mass index (BMI) 45.0-49.9, adult Noble Garzon N.P. Plan of Treatment 09/25/2019 - Sam Esparza M.D.L20.9 Atopic dermatitis, unspecifiedComments: SKIN CARE INSTRUCTIONS LOTION OR BABY OIL 2-3 APPLICATION PER DAYUSE MOISTURIZING SOAPAVOID PROLONGED WATER EXPOSUREAVOID USING HOT WATER IN SKUECTD97.9 Allergic rhinitis, unspecifiedComments:INCREASE PO FLUID USE ANTIHISTAMINE PRN SECOND HAND SMOKING [id number] Polyosteoarthritis, unspecifiedComments:EXERCISE/HEAT/MESSAGETYLENOL OR MOTRIN PRNAVOID HEAVY LIFTINGWT LOSSK57.32 Diverticulitis of large intestine without perforation or abscess without bleedingComments:KEEP APPTS FOR DIAGNOSTIC TESTING ORDERED KEEP APPTS FOR DIAGNOSTIC TESTING ORDERED KEEP APPTS FOR DIAGNOSTIC TESTING [id number] Encounter for immunizationComments:IMMUNIZATION GIVEN ( SEE LIST ) BENEFITS ,RISK AND SIDE EFFECTS DISSCUSED HANDOUT UBNXOT65.93 Otitis media, unspecified, bilateralComments:BJFOMTITL75.03 Otalgia, bilateralComments: RYNVWYKFD79.9 Acute bronchitis, unspecifiedComments:EGBITPGPK37.571 Pain in right ankle and joints of right footComments:RESOLVED Functional Status Description No Information Available Mental Status Description No Information Available Referrals Description No Information Available
--- OUTSIDE RECORDS SUMMARY | 2019-11-16 10:54 | XMS REPORT | Continuity of Care Document ---
:1980 External Reference #:[id number] Author Name Sam Esparza M.D. Address [address] [place] [address] [address] [facility] [place] [address] Problems Description No Information Available Social History [...] Esparza 08/29/2019 - 500mg twice a day MYovanny MYovannyDYovanny 09/05/2019 Tablets Azithromycin z harjinder uad 6tabs J20.9 Sam Esparza 05/23/2019 - 250mg Tablets M. MYovannyDYovanny 2019 Diflucan 1 by mouth day 2tabs Sam Esparza 05/19/2019 - 150mg Tablets one Today, and Beronica Akhtar 2019 Last Day Of Abx Immunizations CPT Code Status Date Vaccine Lot # [id number] Given 09/25/2019 MMR [id number] Vital Signs Date Vital Result Comment 11/11/2019 9:15am BP Systolic 120 mmHg BP Diastolic 60 mmHg Height 59.5 inches 4'11.50" Weight 235.00 lb BMI (Body Mass Index) 46.7 kg/m2 Heart Rate 113 /min Respiratory Rate 17 /min 09/25/2019 4:22pm BP Systolic 118 mmHg BP Diastolic 68 mmHg Height 59.5 inches 4'11.50" Weight 241.00 lb BMI (Body Mass Index) 47.9 kg/m2 Heart Rate 89 /min Respiratory Rate 16 /min Results Test Acquired Date Facility Test Result H/L Range Note CBC With 05/23/2019 [facility] White Blood 6.4 10^3/uL Normal 3.5- 10.8 Diff Count Red Blood Count 4.01 10^6/uL Normal 3.70-4.87 [...] Red Blood Cells % 0.0 CMP 05/23/2019 [facility] Sodium 140 mmol/L Normal 135-145 Potassium 4.3 [...] Egfr Non- 111.3 >60 Egfr 134.7 >60 1 Laboratory test 05/23/2019 [facility] Rheumatoid Factor < 10 IU/mL Normal <15 finding Uric Acid 5.4 mg/dL Normal 2.3-6.6 CRP High Sensitivity 8.67 mg/L High <2.00 TSH (Thyroid Stim Horm) 0.70 mcIU/mL Normal 0.34-5.60 Free T4 (Free Thyroxine) 0.93 ng/dL Normal 0.61-1.12 Hepatitis 05/23/2019 [facility] Hepatitis B Nonreactive Nonreactive Profile Acute Surface Antigen Hepatitis B Core IgM Nonreactive Nonreactive Hepatitis A Ab IgM Negative Negative HCV Index 0.03 s/c Hepatitis C Antibody Negative Negative Laboratory test 05/23/2019 [facility] Hemoglobin A1c 5.5 % Normal 4.0 -5.6 2 finding (Glyco HGB) Lipid 05/23/2019 [facility] Triglycerides 65 mg/dL 3 Cholesterol 160 mg/dL 4 HDL Cholesterol 40.7 mg/dL 5 LDL Cholesterol 106 mg/dL 6 Laboratory test 05/23/2019 [facility] Erythrocyte Sed 23 mm/Hr High 0 -19 finding Rate Iron 72 g/dL Normal 50-212 Lyme Screen w/ Reflex to WB Negative Negative 1,25 Dihydroxy Vitamin D 05/23/2019 [facility] Calcitriol 19 pg/mL 18-78 7 1 Because ethnic data is not always readily [...] 15-29 5 Kidney failure <15 (or dialysis) 2 Therapeutic target for the treatment of diabetes mellitus patients is <7% HBA1C, and in selective patients <6.0%. Please refer to [place] [employer] diabetic care guidelines for further information. 3 Desirable: <150 Borderline High: 150-199 High: 200-499 Very High: >500 4 Desirable: <200 Borderline High: 200-239 High: >239 5 Low: <40 Desirable: 40-60 High: >60 6 Desirable: <100 Near Optimal: 100-129 Borderline High: 130-159 High: 160-189 Very High: >189 7 ADDITIONAL INFORMATION This test was developed and its performance characteristics determined by [facility] in a manner consistent with CLIA requirements. This test has not been cleared or approved by the U.S. Food and Drug Administration. Test Performed by: [facility] [address] [place] [address] Display Artist: Noble Elizabeth M.D. Ph.D.; CLIA# [id number] Procedures Date Code Description Status 05/23/2019 21468 Tympanometry Completed Medical Devices Description No Information Available Encounters Type Date Location Provider Dx Diagnosis Office Visit 09/25/2019 [place] Sam Esparza, L20.9 Atopic dermatitis, 4:30p M.D. unspecified J30.9 Allergic rhinitis, unspecified M15.9 Polyosteoarthritis, unspecified K57.32 Dvtrcli of lg int w/o perforation or abscess w/o bleeding Z23 Encounter for immunization H66.93 Otitis media, unspecified, bilateral H92.03 Otalgia, bilateral J20.9 Acute bronchitis, unspecified M25.571 Pain in right ankle and joints of right foot Office Visit 09/08/2019 8:45a [facility] Yamile Padilla0.9 Atopic dermatitis, N.P. unspecified [...] (BMI) 45.0-49.9, adult Office Visit 08/29/2019 1:00p [facility] Noble Garzon, L20.9 Atopic dermatitis, N.P. unspecified J30.9 Allergic [...] (BMI) 45.0-49.9, adult Office Visit 05/23/2019 8:45a [facility] Noble Garzon, L20.9 Atopic dermatitis, N.P. unspecified J30.9 Allergic rhinitis, unspecified M15.9 Polyosteoarthritis, unspecified M25.571 Pain in right ankle and joints of right foot Z13.29 Encounter for screening for oth suspected endocrine disorder H66.93 Otitis media, unspecified, bilateral H92.03 Otalgia, bilateral J20.9 Acute bronchitis, unspecified Z68.42 Body mass index (BMI) 45.0-49.9, adult Assessments Date Code Description Provider 11/11/2019 L20.9 Atopic dermatitis, unspecified Sam Esparza M.D. 11/11/2019 J30.9 Allergic rhinitis, unspecified Sam Esparza M.D. 11/11/2019 M15.9 Polyosteoarthritis, unspecified Sam Esparza M.D. 11/11/2019 K57.32 Diverticulitis of large intestine without Isaias, Ahmad M. , M.D. perforation or abscess without bleeding 11/11/2019 Z23 Encounter for immunization Sam Esparza M.D. 11/11/2019 H66.93 Otitis media, unspecified, bilateral IsaiasSam M.D. 11/11/2019 H92.03 Otalgia, bilateral Sam Esparza M.D. 11/11/2019 J20.9 Acute bronchitis, unspecified IsaiasSam M.D. 11/11/2019 M25.571 Pain in right ankle and joints of right foot Sam Esparza M.D. 09/25/2019 L20.9 Atopic dermatitis, unspecified IsaiasSam levy M.D. 09/25/2019 J30.9 Allergic rhinitis, unspecified Sam Esparza M.D. 09/25/2019 M15.9 Polyosteoarthritis, unspecified Sam Esparza M.D. 09/25/2019 K57.32 Diverticulitis of large intestine without IsaiasSam levy M.D. perforation or abscess without bleeding 09/25/2019 Z23 Encounter for immunization Sam Esparza M.D. 09/25/2019 H66.93 Otitis media, unspecified, bilateral IsaiasSam M.D. 09/25/2019 H92.03 Otalgia, bilateral Sam Esparza M.D. 09/25/2019 J20.9 Acute bronchitis, unspecified IsaiasSam M.D. 09/25/2019 M25.571 Pain in right ankle and joints of right foot Sam Esparza M.D. 09/08/2019 L20.9 Atopic dermatitis, unspecified Noble Garzon, N.P. 09/08/2019 J30.9 Allergic rhinitis, unspecified Noble Garzon, N.P. 09/08/2019 M15.9 Polyosteoarthritis, unspecified Noble Garzon N.P. 09/08/2019 M25.571 Pain in right ankle and joints of right foot Noble Garzon N.P. 09/08/2019 Z13.29 Encounter for screening for other suspected Noble Garzon , N.P. endocrine disorder 09/08/2019 H66.93 Otitis media, unspecified, bilateral Noble Garzon, N.P. 09/08/2019 H92.03 Otalgia, bilateral Noble Garzon, N.P. 09/08/2019 J20.9 Acute bronchitis, unspecified Noble Garzon, N.P. 09/08/2019 K57.32 Diverticulitis of large intestine without Nobel Garzon, N.P. perforation or abscess without bleeding [...] suspected Noble Garzon , N.P. endocrine disorder 05/23/2019 H66.93 Otitis media, unspecified, bilateral Noble Garzon, N.P. 05/23/2019 H92.03 Otalgia, bilateral Noble Garzon, N.P. 05/23/2019 J20.9 Acute bronchitis, unspecified Noble Garzon, N.P. 05/23/2019 Z68.42 Body mass index (BMI) 45.0-49.9, adult Noble Garzon, N.P. Plan of Treatment 11/11/2019 - Sam Esparza M.D.L20.9 Atopic dermatitis, unspecifiedComments: SKIN CARE INSTRUCTIONS LOTION OR BABY OIL 2-3 APPLICATION PER DAYUSE MOISTURIZING SOAPAVOID PROLONGED WATER EXPOSUREAVOID USING HOT WATER IN QUPLMDV08.9 Allergic rhinitis, unspecifiedComments:INCREASE PO FLUID USE ANTIHISTAMINE PRN SECOND HAND SMOKING AZNINUGNLQ43.9 Polyosteoarthritis, unspecifiedComments:EXERCISE/HEAT/MESSAGETYLENOL OR MOTRIN PRNAVOID HEAVY LIFTINGWT LOSSK57.32 Diverticulitis of large intestine without perforation or abscess without bleedingComments:KEEP APPTS FOR DIAGNOSTIC TESTING ORDERED KEEP APPTS FOR DIAGNOSTIC TESTING ORDERED KEEP APPTS FOR DIAGNOSTIC TESTING [id number] Encounter for immunizationComments:IMMUNIZATION GIVEN ( SEE LIST ) BENEFITS ,RISK AND SIDE EFFECTS DISSCUSED HANDOUT NVFQGE63.93 Otitis media, unspecified, bilateralComments:WZIPEIVLH24.03 Otalgia, bilateralComments: WMXWXBSYU36.9 Acute bronchitis, unspecifiedComments:SKQFSPTGZ27.571 Pain in right ankle and joints of right footComments:RESOLVED Functional Status Description No Information Available Mental Status Description No Information Available Referrals Description No Information Available
--- OUTSIDE RECORDS SUMMARY | 2019-11-16 10:54 | XMS REPORT | Continuity of Care Document ---
:1980 External Reference #:[id number] Author Name Sam Esparza M.D. (transmitted by agent of provider Boelus Posting) Address [address] [place] [address] [facility] [place] [address] Problems Description No Information Available Social History [...] Esparza 08/29/2019 - 500mg twice a day MHermilo HairstonDYovanny 09/05/2019 Tablets Azithromycin z harjinder uad 6tabs Sam Esparza 05/23/2019 - 250mg Tablets MYovanny MYovannyDYovanny 2019 Diflucan 1 by mouth day 2tabs Sam Esparza 05/19/2019 - 150mg Tablets one Today, and Beronica Akhtar 2019 Last Day Of Abx Immunizations CPT Code Status Date Vaccine Lot # [id number] Given 09/25/2019 MMR [id number] Vital Signs Date Vital Result Comment 11/11/2019 [...] Result H/L Range Note CBC With 05/23/2019 [facility] White Blood 6.4 10^3/uL Normal 3.5- 10.8 [...] Red Blood Cells % 0.0 CMP 05/23/2019 [facility] Sodium 140 mmol/L Normal 135-145 Potassium [...] Egfr 134.7 >60 1 Laboratory test 05/23/2019 [facility] Rheumatoid Factor < 10 IU/mL Normal <15 finding Uric Acid 5.4 mg/dL Normal 2.3-6.6 CRP High Sensitivity 8.67 mg/L High <2.00 TSH (Thyroid Stim Horm) 0.70 mcIU/mL Normal 0.34-5.60 Free T4 (Free Thyroxine) 0.93 ng/dL Normal 0.61-1.12 Hepatitis 05/23/2019 [facility] Hepatitis B Nonreactive Nonreactive Profile Acute Surface Antigen Hepatitis B Core IgM Nonreactive Nonreactive Hepatitis A Ab IgM Negative Negative HCV Index 0.03 s/c Hepatitis C Antibody Negative Negative Laboratory test 05/23/2019 [facility] Hemoglobin A1c 5.5 % Normal 4.0 -5.6 2 finding (Glyco HGB) Lipid 05/23/2019 [facility] Triglycerides 65 mg/dL 3 Cholesterol 160 mg/dL 4 HDL Cholesterol 40.7 mg/dL 5 LDL Cholesterol 106 mg/dL 6 Laboratory test 05/23/2019 [facility] Erythrocyte Sed 23 mm/Hr High 0 -19 finding Rate Iron 72 g/dL Normal 50-212 Lyme Screen w/ Reflex to WB Negative Negative 1,25 Dihydroxy Vitamin D 05/23/2019 [facility] Calcitriol 19 pg/mL 18-78 7 1 Because [...] in selective patients <6.0%. Please refer to [place] [employer] diabetic care guidelines for further information. 3 Desirable: <150 Borderline High: 150-199 High: 200-499 Very High: >500 4 Desirable: <200 Borderline High: 200-239 High: >239 5 Low: <40 Desirable: 40-60 High: >60 6 Desirable: <100 Near Optimal: 100-129 Borderline High: 130-159 High: 160-189 Very High: >189 7 ADDITIONAL INFORMATION This test was developed and its performance characteristics determined by [facility] in a manner consistent with CLIA requirements. This test has not been cleared or approved by the U.S. Food and Drug Administration. Test Performed by: [facility] [place] [address] [employer] Sh[employer] Operator: Noble Elizabeth M.D. Ph.D.; CLIA# [id number] Procedures Date Code Description Status 05/23/2019 86759 Tympanometry Completed Medical Devices Description No Information Available Encounters Type Date Location Provider Dx Diagnosis Office Visit 11/11/2019 [facility] Sam Esparza L20.Dominga Atopic dermatitis, 9:15a Beronica unspecified J30.9 Allergic rhinitis, unspecified M15.9 Polyosteoarthritis, unspecified K57.32 Dvtrcli of lg int w/o perforation or abscess w/o bleeding Office Visit 09/25/2019 4:30p [facility] Sam Esparza L20.9 Atopic dermatitisHermilo M.D. unspecified J30.9 Allergic rhinitis, unspecified M15.9 Polyosteoarthritis, unspecified K57.32 Dvtrcli of lg int w/o perforation or abscess w/o bleeding Z23 Encounter for immunization H66.93 Otitis media, unspecified, bilateral H92.03 Otalgia, bilateral J20.9 Acute bronchitis, unspecified M25.571 Pain in right ankle and joints of right foot Office Visit 09/08/2019 8:45a [facility] Noble Garzon, L20.9 Atopic dermatitis, N.P. [...] (BMI) 45.0-49.9, adult Office Visit 08/29/2019 1:00p [facility] Noble Garzon, L20.9 Atopic dermatitis, N.P. [...] (BMI) 45.0-49.9, adult Office Visit 05/23/2019 8:45a [facility] Noble Garzon, L20.9 Atopic dermatitis, N.P. [...] Esparza M.D. 11/11/2019 J30.9 Allergic rhinitis, unspecified IsaiasSam levy M.D. 11/11/2019 M15.9 Polyosteoarthritis, unspecified Sam Esparza M.D. 11/11/2019 K57.32 Diverticulitis of large intestine without IsaiasSam beatty M.D. perforation or abscess without bleeding 09/25/2019 L20.9 Atopic dermatitis, unspecified Sam Esparza M.D. 09/25/2019 J30.9 Allergic rhinitis, unspecified IsaiasSam M.D. 09/25/2019 M15.9 Polyosteoarthritis, unspecified Sam Esparza [...] Garzon, N.P. 09/08/2019 M15.9 Polyosteoarthritis, unspecified Noble Garzon, N.P. 09/08/2019 M25.571 Pain in right ankle and joints of right foot Noble Garzon, N.P. 09/08/2019 Z13.29 Encounter for screening for other suspected Noble Garzon N.P. endocrine disorder 09/08/2019 H66.93 Otitis media, [...] for screening for other suspected Noble Garzon N.P. endocrine disorder 05/23/2019 H66.93 Otitis media, unspecified, bilateral Noble aGrzon, N.P. 05/23/2019 H92.03 Otalgia, bilateral Noble Garzon, N.P. 05/23/2019 J20.9 Acute bronchitis, unspecified Noble Garzon, N.P. 05/23/2019 Z68.42 Body mass index (BMI) 45.0-49.9, adult Noble Garzon N.P. Plan of Treatment 11/11/2019 - Sam Esparza M.D.L20.9 Atopic dermatitis, unspecifiedComments: SKIN CARE INSTRUCTIONS LOTION OR BABY OIL 2-3 APPLICATION PER DAYUSE MOISTURIZING SOAPAVOID PROLONGED WATER EXPOSUREAVOID USING HOT WATER IN NZIQKPZ37.9 Allergic rhinitis, unspecifiedComments:INCREASE PO FLUID USE ANTIHISTAMINE PRN SECOND HAND SMOKING [id number] Polyosteoarthritis, unspecifiedComments:EXERCISE/HEAT/MESSAGETYLENOL OR MOTRIN PRNAVOID HEAVY LIFTINGWT LOSSK57.32 Diverticulitis of large intestine without perforation or abscess without bleedingComments:STABLE AND ASYMPTOMATIC Functional Status Description No Information Available Mental Status Description No Information Available Referrals Description No Information Available
[2019-11-16 11:52] VITALS: BP 125/76
--- NOTE | 2019-11-20 07:52 | UC ---
- Progress Note Progress Note: Your coronavirus test was negative You no longer need to self quarantine REcommend continue to self distance If you are still having symptoms or feeling worse, recommend follow up with your PCP or return to urgent care Course/Dx - Diagnoses Provider Diagnoses: Bronchitis Discharge ED - Sign-Out/Discharge Documenting (check all that apply): Post-Discharge Follow Up All imaging exams completed and their final reports reviewed: No Studies - Discharge Plan Condition: Stable Disposition: HOME Prescriptions: Albuterol HFA INHALER* [Ventolin HFA Inhaler*] 2 puff INH Q6H PRN #1 mdi PRN Reason: Wheezing Azithromyxin APRIL (NF) [Z-April (Zithromax) 250 mg tabs #6] 2 tab PO .TODAY, THEN 1 DAILY #6 tab Patient Education Materials: Acute Bronchitis (ED) Referrals: Noble Garzon NP [Primary Care Provider] - - Billing Disposition and Condition Condition: STABLE Disposition: Home
== END 2019-11-16 11:40 | disposition home or self-care (01) ==
LOC: UCCORT 10:15
DX: J40 Bronchitis, not specified as acute or chronic (principal); Z20.828 Contact with and (suspected) exposure to other viral communicable diseases; Z96.643 Presence of artificial hip joint, bilateral; Z87.891 Personal history of nicotine dependence
CPT/HCPCS: 99212; G0463; U0002

== ENCOUNTER 2019-11-23 07:58 | Emergency (ER) | payer BC ==
--- NOTE | 2019-11-23 08:19 | UC ---
Respiratory Complaint HPI - HPI Summary HPI Summary: tested NEG for COVID-19 last week. continues w/ symptoms and feels her sob is worsening. rx'd w/ inhaler and last used this AM. has not gotten a fever. denies smoking or living w/ smokers. has had this before when she was dx'd w/ bronchitis. nothing makes it better/worse. - History of Current Complaint Chief Complaint: UCGeneralIllness Stated Complaint: SOB,COVID NEG RE-CK Time Seen by Provider: 11/23/19 08:00 Hx Obtained From: Patient Hx Last Menstrual Period: 11/13/19 Pain Intensity: 7 - Allergies/Home Medications Allergies/Adverse Reactions: Allergies Allergy/AdvReac Type Severity Reaction Status Date / Time No Known Allergies Allergy Verified 11/23/19 08:09 Home Medications: Home Medications Albuterol HFA INHALER* [Ventolin HFA Inhaler*] 2 puff INH Q6H PRN #1 mdi [Rx Confirmed 11/23/19] Meloxicam 7.5 mg PO DAILY 11/16/19 [History Confirmed 11/23/19] methylPREDNISolone [Medrol Dosepak 4 MG*] 0 mg PO .SEE APRIL INSTRUCTION #1 april [Rx] PMH/Surg Hx/FS Hx/Imm Hx Previously Healthy: Yes - Surgical History Surgical History: Yes Surgery Procedure, Year, and Place: 2 total hip replacments. esure - Family History Known Family History: Positive: Diabetes Negative: Hypertension - Social History Alcohol Use: Rare Substance Use Type: None Smoking Status (MU): Former Smoker Type: Cigarettes Amount Used/How Often: <1/2 PPD Length of Time of Smoking/Using Tobacco: 10 Years When Did the Patient Quit Smoking/Using Tobacco: 07/09/14 - Immunization History Most Recent Influenza Vaccination: Not the season Review of Systems All Other Systems Reviewed And Are Negative: Yes Constitutional: Negative: Fever ENT: Negative: Sore Throat, Sinus Congestion Respiratory: Positive: Shortness Of Breath, Cough. Negative: Other - wheezing Cardiovascular: Negative: Chest Pain Physical Exam Triage Information Reviewed: Yes Appearance: Well-Appearing Vital Signs Reviewed: Yes Eyes: Positive: Conjunctiva Clear ENT: Positive: Pharynx normal, TMs normal Neck: Positive: Supple Respiratory: Positive: Lungs clear, No respiratory distress. Negative: Crackles , Rhonchi, Stridor, Wheezing Cardiovascular Exam: Normal Neurological: Positive: Alert Skin: Negative: Rashes Diagnostics - Radiology No standard instances Radiology Interpretation Completed By: Radiologist Summary of Radiographic Findings: negative Respiratory Course/Dx - Course Course Of Treatment: TESTED negative for COVID last week and experiencing worsening symptoms. Good O2, afebrile, and not tachycardic. Lungs are clear and no Low risk for PE. CXR neg. rapid strep neg. I've advised her to go to the ED if symptoms stay the same or worsen in the next day or so but at this point it is difficult to tx her symptoms given her stability and findings. For now will do trial of medrol dose april. Slightly reassuring she was neg. for COVID although there have been false negs. Will have her stay home from work one more week. she works at assisted living. - Differential Dx/Diagnosis Differential Diagnosis/HQI/PQRI: Asthma, Bronchitis, CHF, Pulmonary Edema, Other Provider Diagnosis: Shortness of breath Discharge ED - Sign-Out/Discharge Documenting (check all that apply): Patient Departure All imaging exams completed and their final reports reviewed: Yes - Discharge Plan Condition: Stable Disposition: HOME Prescriptions: methylPREDNISolone [Medrol Dosepak 4 MG*] 0 mg PO .SEE APRIL INSTRUCTION #1 april Patient Education Materials: Shortness of Breath (ED) Forms: *Work Release Referrals: Noble Garzon NP [Primary Care Provider] - Additional Instructions: THE XRAY WAS NEGATIVE FOR ANY CARDIOPULMONARY RELATED. IF YOU FEEL THE SAME OR WORSE WITHIN THE NEXT 24-48 HRS PLEASE GO TO THE EMERGENCY ROOM - Billing Disposition and Condition Condition: STABLE Disposition: Home
[2019-11-23 08:37] VITALS: BP 113/74
[2019-11-23 08:51] LABS: Influenza A Molecular Negative (Negative); Influenza B Molecular Negative (Negative)
== END 2019-11-23 09:23 | disposition home or self-care (01) ==
LOC: UCCORT 07:58
DX: R06.02 Shortness of breath (principal); Z96.643 Presence of artificial hip joint, bilateral; Z87.891 Personal history of nicotine dependence
CPT/HCPCS: 71046; 99212; G0463